=== PATIENT | female | born 1990 | race Hispanic/Latino ===

== ENCOUNTER 2023-10-13 13:02 | Outpatient (CLI) | payer BC ==
[2023-10-13] MEDS ORDERED: Sterile Water 10 ML ONE (13:58)
[2023-10-13] MEDS ORDERED: Sincalide 5 MCG VIAL ONE (14:00)
[2023-10-13] MEDS ORDERED: Bacteriostatic Normal Saline 30 ML VIAL ONE (15:31)
== END 2023-10-13 13:03 | disposition home or self-care (01) ==
LOC: NM 13:02
PROVIDERS: ATTEND Internal Medicine Gastroenterology
DX: K75.81 Nonalcoholic steatohepatitis (NASH) (principal); R10.12 Left upper quadrant pain; R10.11 Right upper quadrant pain; R10.32 Left lower quadrant pain; R10.13 Epigastric pain
CPT/HCPCS: 78227; A9537; J2805